=== PATIENT | male | born 1985 | race American Indian/Alaskan Native ===

== ENCOUNTER 2019-01-20 13:44 | Emergency (ER) | payer OTHER ==
[2019-01-20 14:51] LABS: Hematocrit 45.1 % (35.5-45.6); Hemoglobin 15.2 gm/dl (11.8-15.2); Mean Corpuscular HGB Conc 34 % (32-34); Mean Corpuscular Volume 89 fl (84-94); Platelet Count 236 K/mm3 (140-440); Red Blood Count 5.08 M/mm3 (3.65-5.03); Red Cell Distribution Width 13.1 % (13.2-15.2)
[2019-01-20 14:59] LABS: Alanine Aminotransferase 27 units/L (7-56); Albumin 4.6 g/dL (3.9-5); BUN/Creatinine Ratio 9; Blood Urea Nitrogen 9 mg/dL (9-20); Calcium 9.1 mg/dL (8.4-10.2); Hemolysis Index 8
--- NOTE | 2019-01-20 15:09 | Emergency Department Report ---
ED General Adult HPI - General Chief complaint: Seizure Stated complaint: POSSIBLE SEIZURE Time Seen by Provider: 01/20/19 14:17 Source: EMS Mode of arrival: Stretcher Limitations: No Limitations - History of Present Illness Initial comments: The patient presents to the emergency department for seizure-like activity at home. The patient does not have a history of seizures but this activity today was witnessed by his . Per the patient is felt slightly dizzy prior to the seizure-like activity. Patient has chest pain, shows breath, or abdominal pain. Patient does complain of a mild headache. This headache is not the worse headache of his life and describes it as a mild throbbing -: Sudden Location: head Radiation: non-radiation Severity scale (0 -10): 3 Quality: aching Consistency: constant Improves with: none Worsens with: none Associated Symptoms: denies other symptoms Treatments Prior to Arrival: none - Related Data Home Medications Medication Instructions Recorded Confirmed Last Taken ARIPiprazole [Aripiprazole] 5 mg PO QHS 01/20/19 01/20/[address] [DepaKOTE DR] 500 mg PO QHS 01/20/19 01/20/19 Unknown FLUoxetine HCL [Prozac] 20 mg PO DAILY 01/20/19 01/20/19 Unknown buPROPion XL [Wellbutrin Xl] 300 mg PO QAM 01/20/19 01/20/19 Unknown Previous Rx's Medication Instructions Recorded Last Taken Type levETIRAcetam [Keppra TAB] 500 mg PO BID #30 tablet 01/20/19 Unknown Rx Allergies Allergy/AdvReac Type Severity Reaction Status Date / Time No Known Allergies Allergy Unverified 01/20/19 14:05 ED Review of Systems ROS: Stated complaint: POSSIBLE SEIZURE Other details as noted in HPI Comment: All other systems reviewed and negative Constitutional: denies: chills, fever Eyes: denies: eye pain, eye discharge, vision change ENT: denies: ear pain, throat pain Respiratory: denies: cough, shortness of breath, wheezing Cardiovascular: denies: chest pain, palpitations Endocrine: no symptoms reported Gastrointestinal: denies: abdominal pain, nausea, diarrhea Genitourinary: denies: urgency, dysuria Musculoskeletal: denies: back pain, joint swelling, arthralgia Skin: denies: rash, lesions Neurological: denies: headache, weakness, paresthesias Psychiatric: denies: anxiety, depression Hematological/Lymphatic: denies: easy bleeding, easy bruising ED Past Medical Hx - Past Medical History Hx Seizures: Yes Hx Psychiatric Treatment: Yes (bipolar) - Surgical History Past Surgical History?: No - Social History Smoking Status: Never Smoker Substance Use Type: None - Medications Home Medications: Home Medications Medication Instructions Recorded Confirmed Last Taken Type ARIPiprazole [Aripiprazole] 5 mg PO QHS 01/20/19 01/20/[address] [DepaKOTE DR] 500 mg PO QHS 01/20/19 01/20/19 Unknown History FLUoxetine HCL [Prozac] 20 mg PO DAILY 01/20/19 01/20/19 Unknown History buPROPion XL [Wellbutrin Xl] 300 mg PO QAM 01/20/19 01/20/19 Unknown History levETIRAcetam [Keppra TAB] 500 mg PO BID #30 tablet 01/20/19 Unknown Rx ED Physical Exam - General Limitations: No Limitations General appearance: alert, in no apparent distress - Head Head exam: Present: atraumatic, normocephalic - Eye Eye exam: Present: normal appearance - ENT ENT exam: Present: mucous membranes moist - Neck Neck exam: Present: normal inspection - Respiratory Respiratory exam: Present: normal lung sounds bilaterally. Absent: respiratory distress, wheezes, rales - Cardiovascular Cardiovascular Exam: Present: regular rate, normal rhythm. Absent: systolic murmur, diastolic murmur, rubs, gallop - GI/Abdominal GI/Abdominal exam: Present: soft, normal bowel sounds. Absent: distended, tenderness - Rectal Rectal exam: Present: deferred - Extremities Exam Extremities exam: Present: normal inspection - Back Exam Back exam: Present: normal inspection - Neurological Exam Neurological exam: Present: alert, oriented X3, CN II-XII intact. Absent: motor sensory deficit - Psychiatric Psychiatric exam: Present: normal affect, normal mood - Skin Skin exam: Present: warm, dry, intact, normal color. Absent: rash ED Course Vital Signs 01/20/19 01/20/19 01/20/19 13:50 14:00 14:15 Temperature 98.8 F Pulse Rate 101 H 99 H Respiratory 22 15 Rate Blood Pressure 117/76 113/80 O2 Sat by Pulse 98 96 99 Oximetry 01/20/19 01/20/19 01/20/19 14:31 14:45 15:01 Temperature Pulse Rate 92 H 98 H 88 Respiratory 20 24 22 Rate Blood Pressure 113/80 117/76 117/76 O2 Sat by Pulse 98 99 99 Oximetry 01/20/19 01/20/19 01/20/19 15:15 15:31 15:45 Temperature Pulse Rate 98 H 94 H 90 Respiratory 19 26 H 21 Rate Blood Pressure 117/76 117/76 117/76 O2 Sat by Pulse 99 98 98 Oximetry 01/20/19 01/20/19 01/20/19 16:01 16:15 16:31 Temperature Pulse Rate Respiratory Rate Blood Pressure 117/76 117/76 117/76 O2 Sat by Pulse 99 99 98 Oximetry 01/20/19 01/20/19 01/20/19 16:45 17:00 17:15 Temperature Pulse Rate Respiratory Rate Blood Pressure 117/76 107/71 107/71 O2 Sat by Pulse 97 98 98 Oximetry 01/20/19 01/20/19 01/20/19 17:31 17:45 18:00 Temperature Pulse Rate Respiratory Rate Blood Pressure 107/71 107/71 117/62 O2 Sat by Pulse 98 97 97 Oximetry 01/20/19 01/20/19 01/20/19 18:15 18:31 18:45 Temperature Pulse Rate Respiratory Rate Blood Pressure 117/62 117/62 117/62 O2 Sat by Pulse 97 97 85 Oximetry ED Medical Decision Making - Lab Data Result diagrams: 01/20/19 14:20 01/20/19 14:20 Lab Results 01/20/19 01/20/19 01/20/19 Range/Units 14:20 14:20 14:20 WBC 8.2 (4.5-11.0) K/mm3 RBC 5.08 H (3.65-5.03) M/mm3 Hgb 15.2 (11.8-15.2) gm/dl Hct 45.1 (35.5-45.6) % MCV 89 (84-94) fl MCH 30 (28-32) pg MCHC 34 (32-34) % RDW 13.1 L (13.2-15.2) % Plt Count 236 (140-440) K/mm3 Sodium 140 (137-145) mmol/L Potassium 4.2 (3.6-5.0) mmol/L Chloride 102.1 (98-107) mmol/L Carbon Dioxide 22 (22-30) mmol/L Anion Gap 20 mmol/L BUN 9 (9-20) mg/dL Creatinine 1.0 (0.8-1.5) mg/dL Estimated GFR > 60 ml/min BUN/Creatinine Ratio 9 % Glucose 102 H (75-100) mg/dL Calcium 9.1 (8.4-10.2) mg/dL Magnesium 2.00 (1.7-2.3) mg/dL Total Bilirubin 0.30 (0.1-1.2) mg/dL AST 18 (5-40) units/L ALT 27 (7-56) units/L Alkaline Phosphatase 68 (35-129) units/L Total Creatine Kinase 289 H (55-170) units/L Total Protein 7.5 (6.3-8.2) g/dL Albumin 4.6 (3.9-5) g/dL Albumin/Globulin Ratio 1.6 % Acetaminophen < 5.0 L (10.0-30.0) ug/mL Plasma/Serum Alcohol (0-0.07) % 01/20/19 Range/Units 14:20 WBC (4.5-11.0) K/mm3 RBC (3.65-5.03) M/mm3 Hgb (11.8-15.2) gm/dl Hct (35.5-45.6) % MCV (84-94) fl MCH (28-32) pg MCHC (32-34) % RDW (13.2-15.2) % Plt Count (140-440) K/mm3 Sodium (137-145) mmol/L Potassium (3.6-5.0) mmol/L Chloride (98-107) mmol/L Carbon Dioxide (22-30) mmol/L Anion Gap mmol/L BUN (9-20) mg/dL Creatinine (0.8-1.5) mg/dL Estimated GFR ml/min BUN/Creatinine Ratio % Glucose (75-100) mg/dL Calcium (8.4-10.2) mg/dL Magnesium (1.7-2.3) mg/dL Total Bilirubin (0.1-1.2) mg/dL AST (5-40) units/L ALT (7-56) units/L Alkaline Phosphatase (35-129) units/L Total Creatine Kinase (55-170) units/L Total Protein (6.3-8.2) g/dL Albumin (3.9-5) g/dL Albumin/Globulin Ratio % Acetaminophen (10.0-30.0) ug/mL Plasma/Serum Alcohol < 0.01 (0-0.07) % - EKG Data -: EKG Interpreted by Me EKG shows normal: sinus rhythm Rate: normal - Radiology Data Radiology results: report reviewed Critical care attestation.: If time is entered above; I have spent that time in minutes in the direct care of this critically ill patient, excluding procedure time. ED Disposition Clinical Impression: Witnessed seizure-like activity Disposition: DC- TO HOME OR SELFCARE Is pt being admited?: No Does the pt Need Aspirin: No Condition: Stable Instructions: New-Onset Seizure in Adults (ED) Additional Instructions: return if worse Prescriptions: levETIRAcetam [Keppra TAB] 500 mg PO BID #30 tablet Referrals: ABDULKADIR BARRIOS MD [Primary Care Provider] - 3-5 Days SILVANO HER MD [Referring] - 3-5 Days Time of Disposition: 15:43
[2019-01-20] MEDS ORDERED: KEPPRA PO ONE (15:40)
[2019-01-20 16:07] LABS: Amphetamine Screen,Urine PRESUMPTIVE NEGATIVE; Benzodiazepines Screen,Urine PRESUMPTIVE NEGATIVE; Cannabinoid Screen,Urine PRESUMPTIVE NEGATIVE; Cocaine Screen,Urine PRESUMPTIVE NEGATIVE; Methadone Screen,Urine PRESUMPTIVE NEGATIVE; Opiate Screen,Urine PRESUMPTIVE NEGATIVE
[2019-01-20 16:22] LABS: Bacteria,Urine 2+ /HPF (Negative); Bilirubin,Urine NEG (Negative); Blood,Urine SM (Negative); Color,Urine Yellow (Yellow); Mucus,Urine FEW /HPF; Sperm,Urine 1+ /HPF (NP); Urobilinogen,Urine < 2.0 mg/dL (<2.0)
--- NOTE | 2019-01-20 16:32 | Cat Scan Report ---
PROCEDURE: CT HEAD/BRAIN WO CON TECHNIQUE: Computerized tomography of the head was performed without contrast material. CT DOSE LENGTH PRODUCT: 920.5 mGycm HISTORY: seizure COMPARISONS: None . FINDINGS: No CT evidence of intracranial mass, hemorrhage, acute territorial infarction, or hydrocephalus. Intr acranial arteries are symmetric in density. Calvarium is intact. There is trace anterior left ethmoid sinus mucosal thickening. Mastoids are aerated. IMPRESSION: No CT evidence of acute intracranial abnormality . This document is electronically signed by Kath Goodrich MD., January 20 2019 05:29:51 PM ET
[2019-01-20 19:00] VITALS: BP 117/62
== END 2019-01-20 19:04 | disposition home or self-care (01) ==
LOC: ED 13:44
DX: R56.9 Unspecified convulsions (principal)
CPT/HCPCS: 36415; 70450; 80053; 80307; 81001; 82550; 83735; 85027; 93005; 93010; 99285; G0480; 80320